=== PATIENT | female | born 1975 | race Two or more races ===

== ENCOUNTER → 2020-06-26 17:14 | Outpatient (CLI) | payer OTHER | END | disposition home or self-care (01) | LOC: PPH VACUNA 17:14 | DX: Z23 Encounter for immunization (principal) ==

== ENCOUNTER 2020-07-17 14:50 | Outpatient (CLI) | payer OTHER | END 2020-07-17 14:55 | disposition home or self-care (01) | LOC: PPH VACUNA 14:50 | DX: Z23 Encounter for immunization (principal) ==